=== PATIENT | female | born 1955 | race Caucasian/White ===

== ENCOUNTER 2021-06-29 02:04 | Day surgery (SDC) | payer OTHER, SELFPAY ==
[2021-06-21 14:10] VITALS: BMI 21.3
--- NOTE | 2021-06-29 07:18 | WPDANESEPPF ---
Anes - Initial Pre Proc Eval Procedure: Operation Date: 06/29/21 09:00 Proposed Procedures p Screening Colonoscopy - Marek Montiel MD Date/Time: 06/29/21 07:18 Surgeon: Marek Montiel MD Pre Op Diagnosis: neoplasm screening z12.11 Patient Data Age: 66 Gender: F Height: 1.57 m Weight: 53 kg Allergies Allergy/AdvReac Type Severity Reaction Status Date / Time No Known Allergies Allergy Verified 06/21/21 14:15 Home Medications Medication Instructions Recorded Confirmed Type calcium carbonate-vitamin D2 1 tablet PO DAILY 06/21/21 06/21/21 History [Calcium + Vitamin D] Patient hx anesthesia problems: none Family hx anesthesia problems: none PMFSH Past Medical History Medical History (Updated 05/31/21 @ 17:59 by MARIANNA Jurado) BMI 20.0-20.9, adult Surgical History Surgical History (Updated 06/29/21 @ 07:19 by Livan Philippe DO) History of tubal ligation Family History Family History Father Hypertension Family history of elevated blood lipids Acute myocardial infarction Blood clot in vein Mother Hypertension Sibling Family history of elevated blood lipids Hypertension Social History Social History Smoking packs per day: 0.5 Smoking cigarettes per day: 10.0 Years smoked: 10 Smoking pack-years: 5.00 Smoking status: Former smoker Tobacco type: cigarettes Second hand tobacco smoke exposure: Yes Alcohol intake: current Drinks per week: 6 Substance use: never Substance use type: does not use Living arrangements: with family 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[employer] Gender identity (if verbalized by the patient): Female Spiritual care concerns: No Anes - Eval Final PreProcedure Day of Procedure 06/29/21 07:18 Patient weight: normal Heart: regular rate and rhythm Lungs: clear to auscultation and normal air movement Airway: Mallampati scale class II Neurological: alert and oriented Last oral intake: >/= 8 hours ASA classification: II Emergent: no Anesthetic plan: proceed Anesthesia type and monitoring: general GIVS and standard monitoring Informed Consent: The patient's anesthetic plan and its attendant risks and benefits were discussed with the patient/family/POA. Questions were solicited and answers provided to the satisfaction of the patient/family/POA.
[2021-06-29 08:17] VITALS: BP 114/71; PULSE 64; RESP 14; TEMP 36.6; O2SAT 100; BMI 20.6
[2021-06-29] MEDS: LACTATED RINGERS 1,000 ML 150 ML IV CONT (08:28)
--- NOTE | 2021-06-29 08:43 | PM.HPGS ---
History of Present Illness History of Present Illness Consent: Risks, benefits, and alternatives have been discussed and questions answered. Patient agrees to proceed with procedure. Chief complaint: neoplasm screening z12.11 Narrative: Massiel Thorne is a 66 year old female here for screening colonoscopy, last one 2008 Review of Systems Constitutional: Constitutional: Denies headache(s) and Denies weakness Eyes: Eyes: Denies blurry vision ENT: Reports Normal hearing present, Denies headache(s) and Denies neck pain Cardiovascular: Cardiovascular: Denies chest pain and Denies dyspnea Respiratory: Respiratory: Denies dyspnea Gastrointestinal: Gastrointestinal: Reports no additional gastrointestinal complaints Genitourinary: Genitourinary: Denies dysuria Musculoskeletal: Musculoskeletal: Denies neck pain Integumentary/Breasts: Skin/Breast: Denies dry skin Neurologic: Reports Normal hearing present, Denies headache(s) and Denies weakness Psychiatric: Psychiatric: Denies anxiety Endocrine: Endocrine: Denies change in body appearance Hematologic/Lymphatic: Hematologic/Lymphatic: Denies easy bleeding Allergic/Immunologic: Allergic/Immunologic: Denies urticaria PMFSH Past Medical History Medical History (Updated 05/31/21 @ 17:59 by MARIANNA Jurado) BMI 20.0-20.9, adult Surgical History Surgical History (Updated 06/29/21 @ 07:19 by Livan Philippe DO) History of tubal ligation Family History Family History Father Hypertension Family history of elevated blood lipids Acute myocardial infarction Blood clot in vein Mother Hypertension Sibling Family history of elevated blood lipids Hypertension Social History Social History Smoking packs per day: 0.5 Smoking cigarettes per day: 10.0 Years smoked: 10 Smoking pack-years: 5.00 Smoking status: Former smoker Tobacco type: cigarettes Second hand tobacco smoke exposure: Yes Alcohol intake: current Drinks per week: 6 Substance use: never Substance use type: does not use Living arrangements: with family 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[employer] Gender identity (if verbalized by the patient): Female Spiritual care concerns: No Meds Home Medications and Allergies Home Medications Medication Instructions Recorded Confirmed Type calcium carbonate-vitamin D2 1 tablet PO DAILY 06/21/21 06/21/21 History [Calcium + Vitamin D] Allergies Allergy/AdvReac Type Severity Reaction Status Date / Time No Known Allergies Allergy Verified 06/21/21 14:15 Vital Signs Vital Signs - 24 hr 06/29/21 08:17 Temperature 98 F Pulse Rate 64 Respiratory Rate 14 Blood Pressure 114/71 Pulse Oximetry 100 Exam Const: General: comfortable and no acute distress HENMT: General nose exam: Normal nares present Eyes: General: appearance normal, both eyes and all related structures Neck: Neck: no JVD Resp: Auscultation: clear to auscultation bilaterally Cardio: Rate: regular rate Rhythm: regular rhythm GI: Inspection: non-distended GI Palp: Yes Soft to palpation Skin: General skin exam: normal color Neuro: General: gait normal Speech: normal speech Extrem: General: normal to inspection Psych: Mental Status: mental status grossly normal Assessment and Plan Assessment and plan (1) Screening for colon cancer: Code(s): Z12.11 - Encounter for screening for malignant neoplasm of colon Status: Acute Assessment and Plan: colonoscopy
[2021-06-29 09:04] VITALS: BP 93/53; PULSE 70; RESP 15; O2SAT 96
[2021-06-29 09:14] VITALS: BP 96/65; PULSE 60; RESP 22; O2SAT 99
[2021-06-29 09:24] VITALS: BP 123/64; PULSE 57; RESP 20; O2SAT 100
== END 2021-06-29 09:29 | disposition home or self-care (01) ==
PROVIDERS: PCP Family Medicine; Visit Provider Internal Medicine Gastroenterology
PROC: 0DJD8ZZ Inspection of Lower Intestinal Tract, Via Natural or Artificial Opening Endoscopic (ICD-10-PCS; CPT 45378; principal; 2021-06-29 09:00)
DX: Z12.11 Encounter for screening for malignant neoplasm of colon (principal); K57.30 Diverticulosis of large intestine without perforation or abscess without bleeding; K64.8 Other hemorrhoids; Z87.891 Personal history of nicotine dependence
CPT/HCPCS: 45378; J2001; J2704; J7120

== ENCOUNTER → 2022-02-21 11:23 | Outpatient (CLI) | payer OTHER, SELFPAY ==
--- NOTE | ~2022-02-21 | XR_ITS ---
XR hip BI 2V w AP pelvis DATE: 02/21/2022 11:49 INDICATION: Right hip pain TECHNIQUE: AP pelvis. AP and lateral views of each hip. COMPARISON: None FINDINGS: There is osteopenia. The pubic symphysis and sacroiliac joints are intact. There is severe right hip joint space narrowing and very prominent acetabular and femoral head spurri ng. There is mild flattening of the superolateral aspect of the right femoral head; avascular necrosi s is not excluded. There is mild osteoarthritis at the left hip joint. No fracture or dislocation, avascular necrosis or bone destruction of the left hip. Status post bilateral tubal ligation. IMPRESSION: Severe right hip osteoarthritis, possible avascular necrosis of right femoral head Mild left hip osteoarthritis Reviewed, dictated and finalized at location B. IMPRESSION: Severe right hip osteoarthritis, possible avascular necrosis of rig ht femoral head Mild left hip osteoarthritis
== END ==
PROVIDERS: PCP Family Medicine; Visit Provider Nurse Practitioner Family
DX: M25.551 Pain in right hip (principal); M16.0 Bilateral primary osteoarthritis of hip
CPT/HCPCS: 73521

== ENCOUNTER 2022-03-28 13:32 | Outpatient (CLI) | payer OTHER, SELFPAY ==
--- NOTE | 2022-03-28 14:23 | ECG_ITS ---
Measurements Intervals [place] Rate: 56 P: 28 IL: 140 QRS: 53 QRSD: 97 T: 55 QT: 420 QTc: 406 Interpretive Statements SINUS BRADYCARDIA NORMAL ECG NO PREVIOUS ECG AVAILABLE FOR COMPARISON Electronically Signed On 03-28-2022 15:03:43 CDT by Robbie Borrego M.D.
[2022-03-28 15:07] LABS: Basophils Percent Auto 0.7 % (0.2-1.2); Eosinophils Absolute Auto 0.1 K/mm3 (0-0.3); Eosinophils Percent Auto 2.2 % (0-4.4); Hematocrit 40.4 % (37.0-47.0); Hemoglobin 13.2 g/dL (12.0-15.0); Immature Granulocyte Absolute 0.01 K/mm3 (0.00-0.031); Immature Granulocyte Percent A 0.2 % (0-0.5); Lymphocytes Absolute Auto 1.83 K/mm3 (0.9-3.2); Lymphocytes Percent Auto 32.9 % (18.3-44.2); Mean Corpuscular HGB Conc 32.7 g/dl (32-36); Mean Corpuscular Volume 98.1 fl (80-100); Mean Platelet Volume 9.9 fl (7.4-10.4); Monocytes Absolute Auto 0.6 K/mm3 (0.1-0.6); Monocytes Percent Auto 11.3 % (2.6-8.5); Neutrophils Absolute Auto 2.9 K/mm3 (1.3-6.7); Neutrophils Percent Auto 52.7 % (45.5-73.1); Platelet Count Result 335 k/mm3 (150-375); Red Blood Count 4.12 M/mm3 (4.2-5.4); Red Cell Distribution Width 13.4 % (11.5-14.5); White Blood Count 5.6 K/mm3 (4.5-10.0)
[2022-03-28 15:16] LABS: Appearance Urine Clear (Clear); Bilirubin Urine Negative (Negative); Blood Urine Negative (Negative); Color Urine Yellow (Yellow); Glucose Urine UA Negative (Negative); Ketones Urine Negative (Negative); Leukocyte Esterase Ur Trace LEU/UL (Negative); Nitrate Urine Negative (Negative); Protein Urine Negative (Negative); Urine Cotinine NEGATIVE; Urobilinogen Urine 0.2 mg/dL (<2.0); pH Urine 6.5 (5.0-9.0)
[2022-03-28 15:18] LABS: Partial Thromboplastin Time 28.3 SECONDS (22.3-36.8); Prothrombin Time 13.1 Seconds (11.1-14.7)
[2022-03-28 15:19] LABS: Hemoglobin A1C 5.4 % (<5.7)
[2022-03-28 15:20] LABS: Albumin Level 3.9 g/dL (3.5-5.1); Anion Gap 4 mmol/L (8-16); Blood Urea Nitrogen 19 mg/dL (7-17); Calcium 8.8 mg/dL (8.4-10.2); Carbon Dioxide 29 mmol/L (22-30); Chloride 103 mmol/L (98-107); Estimated Glomerular Filt Rate > 60; Glucose 85 mg/dL (65-110); Potassium 4.3 mmol/L (3.4-5.0); Sodium 136 mmol/L (137-145)
[2022-03-28 15:28] LABS: Add Urine Microscopic? YES; Mucus Urine Rare /lpf; RBC Urine 0-2 /hpf (0-2); Squamous Epithelial Cell Urine Rare /hpf (Few); WBC Urine 0-3 /hpf
== END 2022-03-28 13:33 | disposition home or self-care (01) ==
LOC: ANHSURGERY 13:36
PROVIDERS: PCP Family Medicine; Visit Provider Orthopaedic Surgery
DX: Z01.818 Encounter for other preprocedural examination (principal); M16.11 Unilateral primary osteoarthritis, right hip; R00.1 Bradycardia, unspecified; Z51.81 Encounter for therapeutic drug level monitoring; Z79.899 Other long term (current) drug therapy
CPT/HCPCS: 80048; 80307; 81001; 82040; 83036; 85025; 85610; 85730; 86850; 86900; 86901; 87081; 93005

== ENCOUNTER 2022-04-04 00:31 | Day surgery (SDC) | payer OTHER, SELFPAY ==
[2022-03-28 13:49] VITALS: BP 111/65; PULSE 58; RESP 16; TEMP 36.9; O2SAT 99; BMI 21.4
--- NOTE | 2022-03-28 14:00 | PC.NURSE ---
Addendum entered by Zoe Dalton RN 03/28/22 14:25: HIBICLENS SHOWER 3 DAYS PRE-OP PER DR DURAN, PT RELAYS UNDERSTANDING. Original Note: Report to the Outpatient Waiting Room, entrance under the green pavilion located off [facility], at time _10:00AM on date ___04/04/22____. OR Time: _12:00PM . - You and your visitor will be asked a series of questions to screen for COVID 19 for your protection. - Only one visitor is allowed at this time. - The patient visitor is requested to leave or wait in car when not with patient. - A mask is required within the hospital. Patients may have clear liquids (water, carbonated beverages, clear teas, apple juice) until 3 hours prior to surgery with a maximum of 20 ounces. - No food from midnight until time of surgery - Infants may have breast milk until 4 hours before surgery, formula 6 hours prior to surgery. - Children will be allowed to drink immediately following surgery. If applicable, please bring a bottle or sippy cup to assist with drinking. Juice, water, soda, and popsicles are readily available. For infants on formula, please bring formula the day of surgery. Pacifiers are allowed. Take the following medications with a SIP of water the morning of surgery: ___TRAMADOL NEEDED Medications to discontinue per physician __VITAMINS/SUPPLEMENTS 3 DAYS PRE-OP Date to take last dose 03/31/22 Please no make-up, nail yoruba, hairspray, perfume, deodorant, or body powder the day of surgery. No jewelry (including any body piercings) or valuables the day of surgery, leave them at home. Please take a shower or bath the night before, or the morning of, surgery with an antibacterial soap. Wear comfortable, loose fitting clothing. Children are encouraged to wear pajamas. - Jewelry must be removed prior to entering the operating room. Rings and piercings that are not removed may be cut off. - The hospital will not accept responsibility for valuables. - Please leave all valuables, including medications, at home the day of surgery. If you are going home after surgery, a licensed company driver must drive you home. - NO public transportation without another adult. - We recommend that an adult stay with you for 24 hours following discharge. - We also recommend that you do not drive, make important decision, drink alcoholic beverages, or take any drugs that were not prescribed by your health care provider for at least 24 hours after your discharge time. For Pediatric surgeries, we recommend two adults accompany the child home (only one inside the building at this time). Follow any additional instructions given to you from your surgeon. If you or anyone in your household have experienced Covid symptoms in the past week, please notify your surgeon or the nurse liaison at the phone number below for possible testing. Telephone instructions given to __PATIENT and asked if any additional questions and then verbalized understanding. Patient advised to call surgeon office or pre surgery nurse liaison [phone] if any additional questions.
--- NOTE | 2022-04-03 12:50 | WPDANESEPPF ---
Anes - Initial Pre Proc Eval Procedure: Operation Date: 04/04/22 12:00 Proposed Procedures p Right Total Hip Arthroplasty - Wilber Alarcon MD Date/Time: 04/03/22 12:50 Surgeon: Wilber Alarcon MD Pre Op Diagnosis: right hip DJD Patient Data Age: 66 Gender: F Height: 1.57 m Weight: 53.2 kg Last Vital Signs Temp 36.9 C 03/28/22 13:49 Pulse 58 L 03/28/22 13:49 Resp 16 03/28/22 13:49 BP 111/65 03/28/22 13:49 Pulse Ox 99 03/28/22 13:49 O2 Del Method Room Air 03/28/22 13:49 Allergies Allergy/AdvReac Type Severity Reaction Status Date / Time No Known Allergies Allergy Verified 04/04/22 10:03 Home Medications Medication Instructions Recorded Confirmed Type calcium carb-ergocalciferol (vit 1 tablet PO DAILY 06/21/21 04/04/22 History D2) 600 mg calcium-200 unit tablet tramadol 50 mg tablet 50 mg PO Q6H PRN pain hip #20 tabs 02/21/22 04/04/22 Rx Collagen Peptides 6 g PO DAILY 03/28/22 04/04/22 History Patient hx anesthesia problems: none Family hx anesthesia problems: none Results Review: All pre-operative results and documents have been reviewed as part of the pre-operative evaluation. [facility] Past Medical History Medical History (Updated 03/24/22 @ 14:22 by Shey Zarate, RT(R)) Abnormal kidney function Atypical squamous cells of undetermined significance (ASC-US) on cervical Pap smear Avascular necrosis of bone BMI 20.0-20.9, adult BMI 21.0-21.9, adult Decreased libido Degenerative joint disease of right hip Dysfunction of left eustachian tube Elevated glucose Gynecologic exam normal High cholesterol Hip arthritis Osteopenia Postmenopausal Right hip pain Routine history and physical examination of adult Screening for colon cancer Screening for osteoporosis Tinnitus Tinnitus Surgical History Surgical History History of tubal ligation Family History Family History (Updated 03/24/22 @ 14:22 by Shey Zarate, RT(R)) Father Hypertension Family history of elevated blood lipids Acute myocardial infarction Blood clot in vein Mother Hypertension Sibling Family history of elevated blood lipids Hypertension Other Arthritis Depression Diabetes mellitus Heart disease Social History Social History Smoking packs per day: 0.5 Smoking cigarettes per day: 10.0 Years smoked: 10 Smoking pack-years: 5.00 Smoking status: Former smoker Tobacco type: cigarettes Second hand tobacco smoke exposure: Yes Smoking end date: 04/14/88 Alcohol intake: current Drinks per week: 4 Substance use: never Substance use type: does not use Living arrangements: with family [facility] 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 Informed Consent: The patient's anesthetic plan and its attendant risks and benefits were discussed with the patient/family/POA. Questions were solicited and answers provided to the satisfaction of the patient/family/POA.
[2022-04-04] VITALS (14 sets, daily range): BP systolic 100–137; BP diastolic 53–76; PULSE 55–71; RESP 14–20; TEMP 35.9–36.9; O2SAT 94–100
--- NOTE | ~2022-04-04 | XR_ITS ---
EXAMINATION: XR hip RT min 2V DATE: 04/04/2022 15:57 INDICATION: Postoperative evaluation following right total hip arthroplasty] TECHNIQUE: Anteroposterior and lateral views of the right hip were obtained. COMPARISON: Intraoperative radiograph dated 03/16/22 FINDINGS: Interval placement of a right total hip arthroplasty which appears well seated in near anatomic align ment. Expected subcutaneous gas in the postoperative bed. No fractures identified. Surgical clip pot entially tubal ligation clip in the right hemipelvis. A few phleboliths in the pelvis. IMPRESSION: 1. Right total hip arthroplasty, negative for postoperative purposes. Reviewed, dictated and finalized at location B.
[2022-04-04] MEDS: ACETAMINOPHEN 500 MG TABLET 1000 MG PO (10:05)
[2022-04-04] MEDS: LACTATED RINGERS 1,000 ML 30 ML IV CONT ×2 (10:25→15:36)
--- NOTE | 2022-04-04 10:57 | WPDHPUPDATE1 ---
History and Physical Update Update Date/Time: 04/04/22 10:57 History and Physical has been reviewed, including an updated exam of the patient. There are NO changes in the patient's condition. Risks, benefits, and alternatives have been discussed and questions answered. Patient agrees to proceed with procedure.
[2022-04-04] MEDS: TRANEXAMIC ACID 1,000MG/ISO100 1,000 MG/100 ML BAG 200 MG IVPB (11:29)
[2022-04-04] MEDS: ceFAZolin 2 GM/D5W 50 ML 2 GM/50 ML BAG IVPB ×2 (12:11→19:53)
[2022-04-04] MEDS: ceFAZolin SODIUM 1 GM VIAL IV PUSH (13:17)
[2022-04-04] MEDS: TRANEXAMIC ACID 1,000 MG/10 ML AMPUL 1000 MG IV PUSH (15:00)
--- NOTE | 2022-04-04 15:35 | W.PM.PROC2 ---
Procedure Note - Detailed Date of Procedure 04/04/22 Pre-op Diagnosis right hip DJD Post-op Diagnosis Same Procedure Performed R THUY Surgeon Wilber Alarcon MD Anesthesia General Description of Procedure THE PATIENT WAS TAKEN TO THE OPERATING ROOM IN STABLE CONDITION AND WAS PLACED IN THE LATERAL DECUBITUS AND THE RIGHT LOWER EXTREMITY WAS PREPPED AND DRAPED IN THE STERILE FASHION. INCISION WAS MADE IN THE POSTERIOR LATERAL SIDE OF THE HIP, DOWN TO THE FASCIA LAYER. THE FASCIA WAS INCISED. THE HIP WAS EXPOSED. THE SHORT EXTERNAL ROTATORS WERE EXPOSED. THE SCIATIC NERVE WAS IDENTIFIED. INCISION WAS MADE THROUGH THE SHORT EXTERNAL ROTATORS AND THE CAPSULE OF THE HIP JOINT. THE HIP WAS DISLOCATED. AN OSTEOTOMY WAS MADE TO THE FEMORAL NECK ABOUT 1 CM PROXIMAL TO THE LESSER TROCHANTER. THE ACETABULUM WAS EXPOSED. THERE WAS SEVERE DJD SEEN. BEGINNING WITH A 42 REAMER THE ACETABULUM WAS REAMED TO 47 MM. A 47 MM TRIAL WAS PLACED IN 35 DEG OF ABDUCTION AND ANTEVERSION WAS IN ALIGNMENT WITH THE TRANS ACETABULAR LIGAMENT. THE FIT WAS EXCELLENT. THE TRIAL WAS REMOVED. A 48 MM BIOMET G7 COMPONENT WAS THEN TAPPED IN TO PLACE IN 35 DEG OF ABDUCTION AND ANTEVERSION IN ALIGNMENT WITH THE TRANSVERSE ACETABULAR LIGAMENT. THE FIT WAS EXCELLENT. THE ACETABULAR LINER WAS PLACED AND CHECKED FOR STABILITY. NEXT THE FEMUR WAS PREPARED WITH INITIAL CANAL FINDER THEN SEQUENTIAL BROACHING WITH A TAPERLOC HIP SYSTEM, UNTIL A 5 BROACH FIT WELL IN 15 OF ANTEVERSION. A +3 STANDARD OFFSET NECK WITH 32 MM HEAD TRIAL WAS PLACED. THE SHUCK TEST WAS EXCELLENT AND THE STABILITY IN FLEXION AND ROTATION WAS EXCELLENT. LEG LENGTHS WERE GROSSLY EQUAL. TRIALS WERE REMOVED. A BIOMET TAPERLOC 5 STEM WAS PLACED WITH A STANDARD OFFSET NECK THE FIT WAS EXCELLENT IN 15 DEG OF ANTEVERSION. A +3 CERAMIC 32 MM FEMORAL HEAD WAS PLACED. THE HIP WAS TRIALED AND THE STABILITY WAS EXCELLENT WERE THE LEG LENGTHS AND THE SHUCK TEST. THE WOUND WAS IRRIGATED WITH STERILE BETADINE AND WATER FOR 3 MIN. THEN WASHED AGAIN. THE CAPSULE AND THE EXTERNAL ROTATORS WERE APPROXIMATED WITH NUMBER 1 VICRYL. THE FASCIA WITH No 2 QUIL AND THE SUB CUTANEOUS LAYER WITH 2-0 ABSORBABLE SUTURE WITH A RUNNING 3-0 SUBCUTICULAR LAYER WELL. DERMABOND WAS PLACED AND STERILE DRESSING WAS APPLIED. PATIENT WAS PLACED BACK ON TO THE SUPINE POSITION AND WAS EXTUBATED Estimated Blood Loss 200 Complications No immediate complications Condition Stable Disposition PACU
[2022-04-04] MEDS: fentaNYL CITRATE INJ (*CRX) 100 MCG/2 ML VIAL 25 MCG IV PUSH ×3 (15:54→16:23)
--- NOTE | 2022-04-04 16:10 | SUR.PHASEI ---
oral airway removed at 1531
--- NOTE | 2022-04-04 17:23 | PC.NURSE ---
This patient, Massiel Thorne, was admitted to 2 Medical Room 258-01. Patient/family oriented to hospital policies and general routines including ID bracelet, bed and alarms, visiting hours, pain management, procedures, bathroom and other care routines, personal items, smoking policy, room service/diet, and visiting hours. Information on how to activate the Rapid Response Team has been discussed. Patient/Family are encouraged to report perceived risks to care and to ask questions if they do not understand what they are told or what they should do.
[2022-04-04] MEDS: SENNA/DOCUSATE SODIUM TABLET 2 TAB PO (18:16)
[2022-04-04] MEDS: MORPHINE SULFATE (*CRX) 4 MG/ML INJ 3 MG IV PUSH (18:17)
[2022-04-04] MEDS: HYDROcodone/acetaminophen (*CRX) 7.5-325 MG TABLET 1 TAB PO (19:58)
[2022-04-05] MEDS: ceFAZolin 2 GM/D5W 50 ML 2 GM/50 ML BAG IVPB ×2 (03:46→12:01)
[2022-04-05 04:19] VITALS: BP 100/51; PULSE 74; RESP 17; TEMP 36.3; O2SAT 98
[2022-04-05 05:09] LABS: Basophils Percent Auto 0.1 % (0.2-1.2); Hematocrit 28.8 % (37.0-47.0); Hemoglobin 9.8 g/dL (12.0-15.0); Immature Granulocyte Absolute 0.04 K/mm3 (0.00-0.031); Immature Granulocyte Percent A 0.4 % (0-0.5); Lymphocytes Absolute Auto 0.75 K/mm3 (0.9-3.2); Lymphocytes Percent Auto 6.7 % (18.3-44.2); Mean Corpuscular Hemoglobin 32.1 pg (26-34); Mean Corpuscular Volume 94.4 fl (80-100); Mean Platelet Volume 9.7 fl (7.4-10.4); Monocytes Absolute Auto 0.9 K/mm3 (0.1-0.6); Monocytes Percent Auto 7.8 % (2.6-8.5); Neutrophils Absolute Auto 9.6 K/mm3 (1.3-6.7); Platelet Count Result 254 k/mm3 (150-375); Red Blood Count 3.05 M/mm3 (4.2-5.4); Red Cell Distribution Width 13.6 % (11.5-14.5); White Blood Count 11.2 K/mm3 (4.5-10.0)
[2022-04-05 05:23] LABS: Anion Gap 1 mmol/L (8-16); Blood Urea Nitrogen 18 mg/dL (7-17); Calcium 7.8 mg/dL (8.4-10.2); Carbon Dioxide 27 mmol/L (22-30); Chloride 103 mmol/L (98-107); Estimated CRCL calculation 49 ml/min; Estimated Glomerular Filt Rate > 60; Glucose 157 mg/dL (65-110); Potassium 4.2 mmol/L (3.4-5.0); Sodium 131 mmol/L (137-145)
[2022-04-05] MEDS: HYDROcodone/acetaminophen (*CRX) 7.5-325 MG TABLET 1 TAB PO (07:30)
--- NOTE | 2022-04-05 07:50 | P.PNAN_ITS ---
Anes - Prog Note Post-Op Date/Time: 04/05/22 07:50 Cardiovascular status: normal Respiratory status: normal Airway patency: baseline Mental status: baseline Post-Op hydration status: normal Vital Signs: Last Vital Signs Temp 36.3 C L 04/05/22 04:19 Pulse 74 04/05/22 04:19 Resp 17 04/05/22 04:19 BP 100/51 L 04/05/22 04:19 Pulse Ox 98 04/05/22 04:19 O2 Del Method Room Air 04/04/22 21:09 O2 Flow Rate 6 04/04/22 15:51 Pain Score (VAS): 11/24 I/O: Intake & Output 04/04/22 04/04/22 04/05/22 15:59 23:59 07:59 Intake Total 150 650 300 Output Total 50 1300 Balance 150 600 -1000 Laboratory Tests 04/05/22 05:01 04/05/22 05:01 04/05/22 04/05/22 05:01 05:01 WBC 11.2 H RBC 3.05 L Hgb 9.8 L D Hct 28.8 L MCV 94.4 MCH 32.1 MCHC 34.0 RDW 13.6 Plt Count 254 MPV 9.7 Immature Gran % (Auto) 0.4 Neut % (Auto) 85.0 H Lymph % (Auto) 6.7 L [place] % (Auto) 7.8 Eos % (Auto) 0.0 Baso % (Auto) 0.1 L Lymph # (Auto) 0.75 L [place] # (Auto) 0.9 H Eos # (Auto) 0.0 Baso # (Auto) 0.0 Abs Immat Gran (auto) 0.04 H Absolute Neuts (auto) 9.6 H Absolute Nucleated RBC 0.0 Nucleated RBC % 0.0 Sodium 131 L Potassium 4.2 Chloride 103 Carbon Dioxide 27 Anion Gap 1 L BUN 18 H Creatinine 0.80 Estim Creat Clear Calc 49 Estimated GFR > 60 Glucose 157 H Calcium 7.8 L Post-procedural complaints: none Patient Feedback: Patient satisfied with anesthetic care.
[2022-04-05] MEDS: ASPIRIN 325 MG ENTERIC TABLET 650 MG PO (08:28)
[2022-04-05] MEDS: SENNA/DOCUSATE SODIUM TABLET 2 TAB PO (08:29)
[2022-04-05 10:36] VITALS: BP 110/50; PULSE 66; RESP 17; TEMP 36.6; O2SAT 100
--- NOTE | 2022-04-05 14:50 | PM.DS ---
DS: Admitting Diagnosis Discharge Date 04/05/22 Admitting Diagnosis RIGHT HIP DJD DS: Discharge Diagnosis Discharge Diagnosis (1) Degenerative joint disease of right hip: Code(s): M16.11 - Unilateral primary osteoarthritis, right hip Status: Acute DS: Summary Hospital Course Reason for hospitalization: R THUY Hospital Course: PATIENT WAS ADMITTED S/P TOTAL HIP ARTHROPLASTY FOR POSTOPERATIVE MEDICAL MANAGEMENT, PAIN CONTROL AND MOBILIZATION WITH PHYSICAL AND OCCUPATIONAL THERAPY. THE PATIENT PROGRESSED WELL WITH PT/OT. LABS AND VITALS REMAINED STABLE AND PAIN WELL CONTROLLED. THE PATIENT HAS BEEN CLEARED TO BE DISCHARGED HOME. FOLLOW UP APPOINTMENT SCHEDULED. DISCHARGE INSTRUCTIONS DISCUSSED AT LENGTH WITH THE PATIENT. MEDICATIONS REVIEWED. Status at Discharge Cognitive/behavioral status at discharge: STABLE, OX3 Time Spent with Patient Time attestation: Total time spent providing and/or coordinating discharge services: 10 MIN Exam Narrative: POD 1 DOING WELL. WALKING WELL WITH PT. WOUND CLEAN NO INFECTION, NV INTACT NEG HOMANS SIGN DS: Data Data Completed and Pending Labs on day of discharge: Labs from last 24 hours 04/05/22 04/05/22 05:01 05:01 WBC 11.2 H RBC 3.05 L Hgb 9.8 L D Hct 28.8 L MCV 94.4 MCH 32.1 MCHC 34.0 RDW 13.6 Plt Count 254 MPV 9.7 Immature Gran % (Auto) 0.4 Neut % (Auto) 85.0 H Lymph % (Auto) 6.7 L [place] % (Auto) 7.8 Eos % (Auto) 0.0 Baso % (Auto) 0.1 L Lymph # (Auto) 0.75 L [place] # (Auto) 0.9 H Eos # (Auto) 0.0 Baso # (Auto) 0.0 Abs Immat Gran (auto) 0.04 H Absolute Neuts (auto) 9.6 H Absolute Nucleated RBC 0.0 Nucleated RBC % 0.0 Sodium 131 L Potassium 4.2 Chloride 103 Carbon Dioxide 27 Anion Gap 1 L BUN 18 H Creatinine 0.80 Estim Creat Clear Calc 49 Estimated GFR > 60 Glucose 157 H Calcium 7.8 L Procedures/Treatments: R THUY Discharge Plan Discharge Patient Disposition: Home Health Service Discharge Instructions: Per Care Coordination patient has been arranged to have [facility] for RN, PT, OT [phone] KARAN ALARCON M.D. [facility] [address] [place] [phone] POST OPERATIVE DISCHARGE INSTRUCTIONS FOLLOWING TOTAL HIP REPLACEMENT SURGERY ? Your dressing will be changed prior to your discharge. You will be sent home with one additional dressing to be changed on post op day 7 by the home health RN. You may remove the dressing on post op day 14. Your incision was closed with dermabond, allow the dermabond to fall off naturally once your dressing is removed. Do not pull at the dermabond or disrupt incision healing. ? You may shower with your dressing but do not submerge in a bath tub. ? Do not drive or operate machinery until you are released by Dr. Alarcon. ? Do not walk without a walker for any reason until you are released by Dr. Alarcon. ? Continue to apply ice to the hip intermittently for additional pain relief. Protect your skin with a towel or pillow case. ? Unless otherwise instructed by Dr. Alarcon you me be weight bearing as tolerated with your walker. ? Continue to follow strict total hip replacement precautions. ? Your first post op appointment was sent to you via mail preoperatively. If you have any questions or are unable to make your appointment, please contact our office for scheduling questions. ? Your medications have been sent to your pharmacy. You have been sent home with pain medication. We have also sent you with a stool softener as narcotics can cause constipation. Please keep this in mind during your postoperative recovery. If you are not experiencing regular bowel movements, please contact our office for further instruction. ? Please contact our office with any questions regarding your hip at [phone]. TAKE ONE ADULT STRENGTH ASPIRIN (325 MG) FOR 4 WE
[2022-04-05 14:52] VITALS: BP 106/50; PULSE 74; RESP 17; TEMP 37.4; O2SAT 98
== END 2022-04-05 16:11 | disposition home health service (06) ==
LOC: ANHSURGERY 09:57 → ANH2MED 17:12
PROVIDERS: PCP Family Medicine; Visit Provider Orthopaedic Surgery
PROC: (CPT 27130; principal; 2022-04-04 12:00)
DX: M16.11 Unilateral primary osteoarthritis, right hip (principal); Z87.891 Personal history of nicotine dependence
CPT/HCPCS: 27130; 36415; 73502; 80048; 80307; 81001; 82040; 83036; 85025; 85610; 85730; 86850; 86900; 86901; 87081; 93005; 97110; 97116; 97161; 97165; 97535; A9270; C1776; J0171; J0690; J1100; J1170; J1885; J2250; J2270; J2405; J2704; J2795; J3010; J7120

== ENCOUNTER → 2022-10-23 14:31 | Outpatient (CLI) | payer OTHER, SELFPAY ==
--- NOTE | ~2022-10-23 | MM_ITS ---
EXAMINATION: MM screening [place] BI w hiram HISTORY: Screening mammogram TECHNIQUE: Craniocaudal and mediolateral oblique 3-D tomosynthesis images were obtained and synthetic 2-D images were generated. CAD analysis was submitted and interpreted. COMPARISON: 03/29/2021 [facility] bilateral screening mammogram BREAST PARENCHYMAL COMPOSITION: The breasts are heterogeneously dense, which may obscure small masses . FINDINGS: There is no evidence of suspicious mass, calcification, or architectural distortion to sugg est malignancy in either breast. There has been no suspicious interval change. IMPRESSION: 1. No mammographic evidence of malignancy. 2. Recommend routine screening mammography in one year. BI-RADS Category 1: Negative Reviewed, dictated and finalized at location A. P HOME SUPERVISOR
== END ==
PROVIDERS: PCP Family Medicine; Visit Provider Nurse Practitioner Family
DX: Z12.31 Encounter for screening mammogram for malignant neoplasm of breast (principal)
CPT/HCPCS: 77063; 77067

== ENCOUNTER 2024-05-29 13:36 | Outpatient (CLI) | payer OTHER, SELFPAY ==
--- NOTE | ~2024-05-29 | MM_ITS ---
EXAMINATION: MM screening [facility] HISTORY: Screening TECHNIQUE: Craniocaudal and mediolateral oblique 3-D tomosynthesis images were obtained and synthetic 2-D images were generated. CAD analysis was submitted and interpreted. COMPARISON: Comparison to multiple prior studies sequentially, with oldest reviewed study dated 03/29. BREAST PARENCHYMAL COMPOSITION: Not dense: There are scattered areas of fibroglandular density. FINDINGS: There is no evidence of suspicious mass, calcification, or architectural distortion to sugg est malignancy in either breast. There has been no suspicious interval change. IMPRESSION: 1. No mammographic evidence of malignancy. 2. Recommend routine screening mammography in one year. BI-RADS Category 1: Negative Reviewed, dictated and finalized at location B.
== END 2024-05-29 13:37 ==
LOC: MICIMG 13:37
PROVIDERS: PCP Family Medicine; Visit Provider Nurse Practitioner Family
DX: Z12.31 Encounter for screening mammogram for malignant neoplasm of breast (principal)
CPT/HCPCS: 77063; 77067

== ENCOUNTER 2025-06-02 07:17 | Outpatient (CLI) | payer OTHER, SELFPAY ==
--- NOTE | ~2025-06-02 | MM_ITS ---
EXAMINATION: MM screening [facility] HISTORY: Screening mammogram TECHNIQUE: Craniocaudal and mediolateral oblique 3-D tomosynthesis images were obtained and synthetic 2-D images were generated. CAD analysis was submitted and interpreted. COMPARISON: 05/29/2024, 10/23/2022, 03/29/2021 BREAST PARENCHYMAL COMPOSITION:Dense: The breasts are heterogeneously dense, which may obscure small masses. FINDINGS: No suspicious mass, calcification, or architectural distortion are identified in either breast to suggest malignancy. There has been no suspicious interval change. IMPRESSION: No mammographic evidence of malignancy. Recommend routine screening mammography in one year. BI-RADS Category 1: Negative Reviewed, dictated and finalized at location .
== END 2025-06-02 07:18 | disposition home or self-care (01) ==
LOC: MICIMG 07:18
PROVIDERS: PCP Family Medicine; Visit Provider Family Medicine
DX: Z12.31 Encounter for screening mammogram for malignant neoplasm of breast (principal)
CPT/HCPCS: 77063; 77067

== ENCOUNTER 2025-07-28 15:13 | Outpatient (CLI) | payer OTHER, SELFPAY ==
--- NOTE | ~2025-07-28 | DEXA_ITS ---
Bone Density Report Name: SEBAS SAMAYOA Age: 70 Sex: Female Ethnicity: White Date of : 1955 Indication: postmenopausal; screening for osteoporosis; Referring Provider: SHERRY PEREZ Study: Bone densitometry was performed. Exam Date: July 28, 2025 Accession number: [id number] Bone Density: Region BMD T-score Z-score Classification AP Spine(L1-L4) 0.982 -0.6 1.4 Normal Femoral Neck (Left) 0.688 -1.5 0.2 Osteopenia Total Hip (Left) 0.857 -0.7 0.7 Normal World Health Organization criteria for BMD impression classify patients as: Normal (T-score at or above -1.0), Osteopenia (T-score between -1.0 and -2.5), or Osteoporosis (T-score at or below -2.5). 10-year Fracture Risk(1): Major Osteoporotic Fracture 8.9% Hip Fracture 1.1% Reported Risk Factors: [place] (), Neck BMD=0.688, BMI=22.5 (1) FRAX(R) Version 3.08. Fracture probability calculated for an untreated patient. Fracture probability may be lower if the patient has received treatment. Clinical Information Provided by Patient: Has used the following medications: Vitamin D, Calcium Patient maximum height was 62 Menopause Age: 59 Drinks caffeinated beverages Onset of menses at age 14 Number of children 2 Impression: The patient has low bone mass, based on the Left Femoral Neck T-score. The patient has an estimated ten-year risk of hip fracture of 1.1% and an estimated ten-year risk of major fracture of 8.9%, based on the WHO FRAX algorithm. Discussion: BONE DENSITY IS LOW AT ONE OR MORE SKELETAL SITES. This patient's lowest T-score is low at one or more skeletal sites. It meets the World Health Organization's (WHO) criteria for ?low bone mass? (T-score between -1.0 and -2.5). The patient's 10-year risk of fracture as calculated by FRAX is less than the threshold where pharmacological therapy is recommended by the National Osteoporosis Foundation (NOF). However, all treatment decisions require clinical judgment and consideration of individual patient factors, including patient preferences, comorbidities, previous drug use, risk factors not captured in the FRAX model (e.g., frailty, falls, vitamin D deficiency, increased bone turnover, interval significant decline in bone density) and possible under or overestimation of fracture risk by FRAX. The patient should follow a healthful lifestyle (good nutrition with adequate calcium and vitamin D, and appropriate weight-bearing exercise). Follow-Up: Consider repeating this study in 2 to 3 years to reassess this patient's status, or sooner if there is some new clinical indication. Reported by: RENUKA on 07/28/2025 3:38:00 PM. Reviewed, dictated and finalized at location A.
== END 2025-07-28 15:14 | disposition home or self-care (01) ==
LOC: MICIMG 15:13
PROVIDERS: PCP Family Medicine
DX: M85.852 Other specified disorders of bone density and structure, left thigh (principal); Z78.0 Asymptomatic menopausal state
CPT/HCPCS: 77080